=== PATIENT | female | born 1945 | race Caucasian/White ===

== ENCOUNTER → 2019-09-05 | Outpatient (CLI) | payer OTHER | LOC: SJCVC 13:47 | DX: R07.9 Chest pain, unspecified (principal); R06.02 Shortness of breath; E78.5 Hyperlipidemia, unspecified; K21.9 Gastro-esophageal reflux disease without esophagitis; E66.9 Obesity, unspecified; I10 Essential (primary) hypertension; M85.80 Other specified disorders of bone density and structure, unspecified site; Z82.49 Family history of ischemic heart disease and other diseases of the circulatory system; Z79.899 Other long term (current) drug therapy; Z87.891 Personal history of nicotine dependence ==

== ENCOUNTER → 2019-09-18 | Outpatient (CLI) | payer OTHER ==
[~2019-09-18] MED LIST: FUROSEMIDE 20 M20 MG PO; KLOR-CON 10 ER10 MEQ PO; NORVASC10 MG PO; OMEPRAZOLE-BIC1 EACH PO; SERTRALINE HCL100 MG PO
== END ==
LOC: SJCVCIMAG 12:18
DX: R07.89 Other chest pain (principal); E78.5 Hyperlipidemia, unspecified; R06.02 Shortness of breath; R07.9 Chest pain, unspecified; Z87.891 Personal history of nicotine dependence; Z79.899 Other long term (current) drug therapy

== ENCOUNTER → 2019-09-25 | Outpatient (CLI) | payer OTHER | LOC: SJCVC 14:21 | PROVIDERS: ATTEND Internal Medicine | DX: R07.9 Chest pain, unspecified (principal); R06.02 Shortness of breath; I10 Essential (primary) hypertension; E78.5 Hyperlipidemia, unspecified; E66.9 Obesity, unspecified; K21.9 Gastro-esophageal reflux disease without esophagitis; Z79.899 Other long term (current) drug therapy; Z87.891 Personal history of nicotine dependence ==

== ENCOUNTER → 2019-10-02 | Outpatient (CLI) | payer OTHER ==
[~2019-10-02] VITALS: Ht 152.4 cm; Wt 86.2 kg
[2019-10-02 10:15] LABS: HEMATOCRIT 34.3 % (37.0-47.0); HEMOGLOBIN 11.5 gm/dL (12.0-15.0); MCH 24.2 pg (26.0-34.0); MCHC 33.6 g/dL (28.0-37.0); MCV 71.8 fL (80.0-100.0); RBC 4.78 mil/uL (4.20-5.00); RDW 16.5 % (10.5-14.5); WBC 5.1 thou/uL (4.0-11.0)
[2019-10-02 10:22] LABS: CALCIUM 8.5 mg/dL (8.5-10.1); CREATININE 0.7 mg/dL (0.6-1.0); POTASSIUM 3.7 mmol/L (3.5-5.1)
[2019-10-02 10:27] VITALS: BP 146/56
--- NOTE | 2019-10-03 08:01 | EKG ---
[facility] [place] [address] ELECTROCARDIOGRAM REPORT Name: ERNESTINE GARCIA Room #: REG [facility].#: [id number] Admission: 10/02/19 Attend Phys: Ned Lange Discharge: Date of : 47 Report #: [id number] THIS REPORT FOR: cc: Babatunde Mas Gregory DO Lundgren,Riley Maddox MD [facility] THIS REPORT FOR: //name// [facility] Test Date: 2019-10-02 Test Time: 10:14:15 Pat Name: ERNESTINE GARCIA Department: Room: Gender: F Charrer: Shantell SIEGEL : 1945 Requested By: Ned Lange Order Number: [id number] MD: Riley Ott Measurements Intervals [place] Rate: 76 P: 40 MN: 130 QRS: 60 QRSD: 89 T: 41 QT: 404 QTc: 455 Interpretive Statements Sinus rhythm No significant abnormality No previous ECG available for comparison Electronically Signed On 10-03-2019 7:59:24 CDT by Riley Ott [email or web address] <ELECTRONICALLY SIGNED> By: Riley Ott MD, [facility] 10/03/19 0759 [id number] Riley Ott MD, [facility] /EPI
--- NOTE | 2019-10-04 13:28 | CATHLAB ---
[facility] [place] [address] INVASIVE PROCEDURE REPORT Name: ERNESTINE GARCIA Room #: REG [facility]#: [id number] Admission: 10/02/19 Attend Phys: Ned Lange Discharge: Date of : 47 Report #: [id number] THIS REPORT FOR: cc: Babatunde Mas Gregory DO Lammoglia, Francisco J. MD ~ APPROVED REPORT Study performed: 10/02/2019 10:26:30 Patient Details Patient Status: Out-Patient Room #: The patient is a 74 year-old female Event Personnel Ned Lange Retrieval Specialist, Benito Holm RN, Davion Samuel RN RN, Olamide Kaminski RTR, COLLECTIONS REPRESENTATIVE Monitor, Gladis Gudino RTR Scrub Procedures Performed Art Access - R femoral artery* Left Heart Cath w/or w/o Coronaries [id number] [facility] [address] Initial Mod Sed Same Phys/QHP 5y [id number] Hemostasis with Manual pressure, supervision of conscious sedation Indication Positive stress test Procedure Narrative The Right Groin^ was infiltrated with 1% Lidocaine subcutaneous anesthesia. A PINNACLE 4FR Sheath #[id number] sheath was inserted into the RFA^. Coronary angiography was performed using coronary diagnostic catheters. The right coronary system was accessed and visualized with a JR4 catheter. The left coronary system was accessed and visualized with a JL4 catheter. The left ventricle was accessed and visualized with a JR4 catheter. Hemostasis was obtained with manual pressure following sheath removal without any complications. The patient tolerated the procedure well and there were no complications associated with the procedure. There was no hematoma. Intraoperative Conscious Sedation Sedation start time: 11:20 Case end Time: 11:44 [facility] [place] [address] INVASIVE PROCEDURE REPORT Name: ERNESTINE GARCIA Room #: REG [facility]#: [id number] Admission: 10/02/19 Attend Phys: Ned Berman Discharge: Date of : 47 Report #: [id number] Versed 3 mg Fluoro Time: 1.28 minutes Dose: DAP 1770.20 cGycm2 252 mGy Contrast Type and Amount: Omnipaque 45 ml Coronary Angiography The patient's coronary anatomy is right dominant. Diagnostic Cath Left Main Normal origin moderate caliber triifurcates left anterior descending left circumflex, and ramus intermedius. The left main is free of significant stenosis LAD Moderate caliber type II vessel which courses in the anterior interventricular sulcus giving rise to septal diagonal branches. His course is quite tortuous and it tapers rapidly in the distal third with a isolated lesion that appears to be significant although the vessel is less than half a millimeter in diameter. There is luminal irregularities noted but no significant high-grade obstructive lesions proximally Diagonal 1 Small caliber vessel without high-grade lesions noted Diagonal 2 Diminutive caliber vessel without significant stenosis Circumflex Moderate caliber nondominant vessel was courses laterally in the AV groove giving rise to a moderate caliber marginal branch which is bifurcating in its distal portion. The circumflex and continues as a small posterior wall vessel free of high-grade disease. OM1 Moderate caliber vessel with only luminal irregularities present no high-grade obstructive lesions are noted Right Coronary Moderate caliber vessel of normal origin courses giving rise to the right atrial and right ventricular branches which are small. Then proceeds to the crux of the heart gives a history of posterior descending artery and terminates the posterior wall branch which are small in caliber. No high-grade lesions are noted. R PDA Small to moderate caliber vessel no significant obstructive lesions Ramus Small caliber vessel coursing along the lateral aspect of the left ventricle extending towards the apex it is free of significant irregularities or obstructive lesion Left Ventriculography Left Ventriculography was not performed. Hemodynamics [facility] [address] [place] [address] INVASIVE PROCEDURE REPORT Name: ERNESTINE GARCIA Room #: REG [facility]#: [id number] Admission: 10/02/19 Attend Phys: Ned Berman Discharge: Date of : 47 Report #: [id number] The aortic pressure is 165/69 mmHg with a mean of 100 mmHg. The left ventricular pressure is 165/2 mmHg with a mean of mmHg. The left ventricular end diastolic pressure is 20 mmHg. Conclusion 1. Minimal coronary artery disease with only mild plaquing and one isolated moderate lesion in the distal LAD of diminutive size 2. Normal hemodynamic Recommendations Cardiac Risk Reduction Program Medical Therapy <ELECTRONICALLY SIGNED> By: Ned Lange MD 10/04/19 1326 25 25 Ned Lange MD /INF
== END | disposition home or self-care (01) ==
LOC: CATH 07:33
PROVIDERS: Internal Medicine
DX: R07.9 Chest pain, unspecified (principal); R94.39 Abnormal result of other cardiovascular function study; I25.10 Atherosclerotic heart disease of native coronary artery without angina pectoris; I10 Essential (primary) hypertension; E78.5 Hyperlipidemia, unspecified; K21.9 Gastro-esophageal reflux disease without esophagitis; F32.9 Major depressive disorder, single episode, unspecified; M85.80 Other specified disorders of bone density and structure, unspecified site; E66.09 Other obesity due to excess calories; Z98.890 Other specified postprocedural states; Z79.899 Other long term (current) drug therapy; Z87.891 Personal history of nicotine dependence; Z85.828 Personal history of other malignant neoplasm of skin